=== PATIENT | male | born 1995 | race African-American/Black ===

== ENCOUNTER 2020-05-25 16:02 | Inpatient (IN) ==
[2020-05-25] MEDS ORDERED: Famotidine IV 10 MG/ML 2 ml VIAL (20 mg) IV ONE (17:44)
[2020-05-25] MEDS ORDERED: Famotidine IV 10 MG/ML 2 ml VIAL (20 mg) ONE (18:00)
[2020-05-25] MEDS: Lactated Ringers 1000 ml BAG 1,000 ML IV SCH ×2 (18:13→22:49)
[2020-05-25 18:15] LABS: Activated Partial Thrombo Time 43.7 seconds (26.0-38.0); INR 2.36 (0.82-1.09)
[2020-05-25 18:17] LABS: ABS Basophils 0.1 10^3/ul (0-0.2); ABS Lymphocytes 0.8 10^3/ul (1.0-4.8); ABS Monocytes 0.6 10^3/ul (0-0.8); Eosinophil % 0.7 %; Hematocrit 44 % (42-52); Hemoglobin 15.1 g/dL (14.0-18.0); Lymphocyte % 18.2 %; Mean Corpuscular HGB Conc 34 g/dL (31-36); Mean Corpuscular Hemoglobin 30 pg (27-31); Mean Corpuscular Volume 87 fL (80-94); Mean Platelet Volume 8.2 fL (7.4-10.4); Platelet Count 348 10^3/uL (150-450); Red Blood Count 5.04 10^6 /uL (4.18-5.48); Red Cell Distribution Width 14 % (10-15); White Blood Count 4.5 10^3/uL (3.5-10.8)
[2020-05-25] MEDS ORDERED: Lidocaine 1% w EPI 1:100,000 MDV 20 ML VIAL ONE (18:24)
[2020-05-25] MEDS ORDERED: Bupivacaine 0.25% EPI 200,000 30 ML SDV ONE (18:25)
[2020-05-25 18:27] LABS: Albumin 3.3 g/dL (3.2-5.2); Calcium 9.3 mg/dL (8.6-10.3); Potassium 4.3 mmol/L (3.5-5.0); Total Bilirubin 0.6 mg/dL (0.2-1.0)
[2020-05-25 18:34] LABS: Albumin/Globulin Ratio 0.7 (1-3); BUN/Creatinine Ratio 13.3 (8-20); C Reactive Protein 158.59 mg/L (<8.01); EGFR African American 151.2 (>60); EGFR Non-African American 124.9 (>60); Total Protein 8.3 g/dL (6.4-8.9)
[2020-05-25] MEDS ORDERED: Midazolam 5 mg/5 ml VIAL 1 mg/ml 5 ml VIAL (5 mg) ONE (18:46)
[2020-05-25] MEDS ORDERED: fentaNYL 100 mcg/2 ml 50 MCG/ML VIAL ONE ×2 (18:59→19:21)
[2020-05-25] MEDS ORDERED: Ondansetron 4 mg VIAL 2 MG/ML 2 ml VIAL ONE (19:20)
[2020-05-25] MEDS ORDERED: Dexamethasone IV 4 MG/ML VIAL 1 ml VIAL ONE (19:20)
[2020-05-25] MEDS ORDERED: Propofol 10 MG/ML 20 ML BTL ONE ×2 (19:20→20:47)
[2020-05-25] MEDS ORDERED: Lidocaine 2% PF 5 ML VIAL ONE (19:20)
[2020-05-25] MEDS ORDERED: GENTAMICIN ADULT IVPB ONE (20:00)
[2020-05-25] MEDS ORDERED: NS 0.9% IVPB ONE (20:00)
[2020-05-25] MEDS ORDERED: oxyCODONE/Acetamin 5/325 mg TAB PO PRN (20:54)
[2020-05-25] MEDS ORDERED: Naloxone 0.4 mg VIAL 0.4 mg/ml 1 ml VIAL IV PRN (20:54)
[2020-05-25] MEDS ORDERED: DiMENhydriNATE IV 50 mg/ml 1 ml VIAL IV PUSH PRN (20:54)
[2020-05-25] MEDS ORDERED: diPHENhydraMINE IV 50 MG/ML 1 ml VIAL (BENADRYL) IV PRN (20:55)
[2020-05-25] MEDS ORDERED: Lactulose 30 ml UDC PO PRN (20:55)
[2020-05-25] MEDS ORDERED: Ondansetron 4 mg VIAL 2 MG/ML 2 ml VIAL IV PRN (20:55)
[2020-05-25] MEDS ORDERED: Ondansetron ODT 4 mg TAB 4 MG TAB PO PRN (20:55)
[2020-05-25] MEDS ORDERED: Magnesium Hydroxide LIQ 30 ML UDC PO PRN (20:55)
[2020-05-25] MEDS ORDERED: diPHENhydraMINE 25 mg TAB PO PRN (20:55)
[2020-05-25] MEDS ORDERED: HYDROmorphone 1 MG/1 ML SYRINGE ONE (21:29)
[2020-05-25] MEDS ORDERED: oxyCODONE/Acetamin 5/325 mg TAB ONE (21:29)
[2020-05-25] MEDS: HYDROmorphone 1 MG/1 ML SYRINGE IV PRN ×2 (21:30→21:42)
[2020-05-25] MEDS: Magnesium Hydroxide LIQ 30 ML UDC PO SCH (22:50)
[2020-05-26] MEDS: Gentamicin ADULT 100 MG in NS 0.9% 100 ml BAG 100 ML IVPB SCH ×2 (05:06→08:23)
[2020-05-26] MEDS: oxyCODONE/Acetamin 5/325 mg TAB PO PRN ×4 (06:05→21:15)
[2020-05-26] MEDS: Cefepime 2 GM in Dextrose 2 GM/50 ML BAG IV SCH ×2 (06:06→17:33)
[2020-05-26 06:11] LABS: Hematocrit 34 % (42-52); Hemoglobin 11.8 g/dL (14.0-18.0); Platelet Count 404 10^3/uL (150-450)
[2020-05-26 06:27] LABS: BUN/Creatinine Ratio 16.2 (8-20); Calcium 9.3 mg/dL (8.6-10.3); EGFR African American 153.5 (>60); EGFR Non-African American 126.9 (>60)
[2020-05-26 06:29] LABS: Potassium 5.2 mmol/L (3.5-5.0)
[2020-05-26] MEDS ORDERED: Vancomycin 1000 MG in NS 0.9% 250 ML IVPB SCH (06:30)
[2020-05-26] MEDS: Ciprofloxacin 400mg IVPREMIX 400 MG/200 ML BAG IVPB SCH ×2 (06:41→18:17)
[2020-05-26] MEDS ORDERED: Vancomycin per Pharmacy 1 EA NOTE FOLLOW UP PRN (07:13)
[2020-05-26] MEDS ORDERED: Vitamin THERAPEUTIC TAB PO SCH (09:00)
[2020-05-26] MEDS ORDERED: Influenza VAC *QUAD* 2020-21* 0.5 ML SYRINGE IM ONE (09:00)
[2020-05-26 09:13] LABS: Erythrocyte Sed Rate 88 mm/Hr (0-14)
[2020-05-26] MEDS: Magnesium Hydroxide LIQ 30 ML UDC PO SCH ×2 (10:30→21:16)
[2020-05-26 14:39] LABS: ABS Lymphocytes 1.1 10^3/ul (1.0-4.8); ABS Monocytes 0.7 10^3/ul (0-0.8); ABS Neutrophils 6.7 10^3/ul (1.5-7.7); Hematocrit 31 % (42-52); Hemoglobin 10.9 g/dL (14.0-18.0); Lymphocyte % 12.6 %; Mean Corpuscular HGB Conc 35 g/dL (31-36); Mean Corpuscular Hemoglobin 30 pg (27-31); Mean Corpuscular Volume 86 fL (80-94); Platelet Count 421 10^3/uL (150-450); Red Blood Count 3.66 10^6 /uL (4.18-5.48); Red Cell Distribution Width 14 % (10-15); White Blood Count 8.5 10^3/uL (3.5-10.8)
[2020-05-27] MEDS: oxyCODONE/Acetamin 5/325 mg TAB PO PRN ×3 (05:13→20:52)
[2020-05-27] MEDS: Ciprofloxacin 400mg IVPREMIX 400 MG/200 ML BAG IVPB SCH ×2 (05:17→17:10)
[2020-05-27] MEDS ORDERED: Vancomycin Trough Check NOTE FOLLOW UP ONE (06:00)
[2020-05-27] MEDS: Cefepime 2 GM in Dextrose 2 GM/50 ML BAG IV SCH ×2 (06:28→18:28)
[2020-05-27] MEDS: Magnesium Hydroxide LIQ 30 ML UDC PO SCH ×2 (07:56→20:53)
[2020-05-27 08:08] LABS: Hematocrit 32 % (42-52); Hemoglobin 10.6 g/dL (14.0-18.0); Mean Platelet Volume 8.3 fL (7.4-10.4); Platelet Count 358 10^3/uL (150-450)
[2020-05-27 08:22] LABS: BUN/Creatinine Ratio 9.9 (8-20); Calcium 8.9 mg/dL (8.6-10.3); EGFR African American 138.3 (>60); EGFR Non-African American 114.3 (>60); Potassium 3.9 mmol/L (3.5-5.0)
[2020-05-28 05:04] LABS: ABS Eosinophils 0.1 10^3/ul (0-0.6); ABS Lymphocytes 1.4 10^3/ul (1.0-4.8); ABS Monocytes 0.5 10^3/ul (0-0.8); ABS Neutrophils 2.6 10^3/ul (1.5-7.7); Hematocrit 34 % (42-52); Hemoglobin 11.5 g/dL (14.0-18.0); Lymphocyte % 31.3 %; Mean Corpuscular HGB Conc 33 g/dL (31-36); Mean Corpuscular Hemoglobin 29 pg (27-31); Mean Corpuscular Volume 88 fL (80-94); Mean Platelet Volume 7.9 fL (7.4-10.4); Platelet Count 400 10^3/uL (150-450); Red Blood Count 3.92 10^6 /uL (4.18-5.48); Red Cell Distribution Width 14 % (10-15); White Blood Count 4.6 10^3/uL (3.5-10.8)
[2020-05-28] MEDS: Ciprofloxacin 400mg IVPREMIX 400 MG/200 ML BAG IVPB SCH (05:20)
[2020-05-28] MEDS: Cefepime 2 GM in Dextrose 2 GM/50 ML BAG IV SCH ×2 (06:29→18:09)
[2020-05-28] MEDS: Magnesium Hydroxide LIQ 30 ML UDC PO SCH ×2 (07:51→20:02)
[2020-05-28] MEDS: Senna TAB 8.6 mg TAB PO SCH (07:51)
[2020-05-28] MEDS: oxyCODONE/Acetamin 5/325 mg TAB PO PRN ×4 (08:04→23:48)
[2020-05-28] MEDS ORDERED: Gadoteridol (CONTRAST) 279.3 MG/ML 10 ML IV ONE ×2 (12:16→12:58)
[2020-05-28] MEDS ORDERED: Buffered Lidocaine 1% SYRIN 1 ml INTRADERM ONE (15:06)
[2020-05-28] MEDS ORDERED: Morphine 2 MG/ML SYRINGE IV PRN (20:33)
[2020-05-29 05:40] LABS: Hematocrit 34 % (42-52); Hemoglobin 11.7 g/dL (14.0-18.0); Mean Platelet Volume 7.9 fL (7.4-10.4); Platelet Count 428 10^3/uL (150-450)
[2020-05-29] MEDS: oxyCODONE/Acetamin 5/325 mg TAB PO PRN ×2 (06:04→12:06)
[2020-05-29] MEDS: Cefepime 2 GM in Dextrose 2 GM/50 ML BAG IV SCH ×2 (06:04→18:42)
[2020-05-29] MEDS: Senna TAB 8.6 mg TAB PO SCH (10:52)
[2020-05-29] MEDS: Magnesium Hydroxide LIQ 30 ML UDC PO SCH ×2 (10:52→21:56)
[2020-05-29 11:50] LABS: HIV 4th Generation Nonreactive (Nonreactive)
[2020-05-29] MEDS ORDERED: Buffered Lidocaine 1% SYRIN 1 ml INTRADERM ONE (15:14)
[2020-05-29] MEDS ORDERED: Ondansetron 4 mg VIAL 2 MG/ML 2 ml VIAL IV PRN (17:44)
[2020-05-29] MEDS ORDERED: fentaNYL 100 mcg/2 ml 50 MCG/ML VIAL IV PRN (17:44)
[2020-05-29] MEDS ORDERED: HYDROmorphone 1 MG/1 ML SYRINGE IV PRN (17:44)
[2020-05-29] MEDS ORDERED: Naloxone 0.4 mg VIAL 0.4 mg/ml 1 ml VIAL IV PRN (17:44)
[2020-05-29] MEDS ORDERED: fentaNYL 250 mcg/5 ml 50 MCG/ML 5 ml VIAL (250 MCG) ONE (18:08)
[2020-05-29] MEDS ORDERED: Midazolam 2 mg/2 ml VIAL 1 mg/ml 2 ml VIAL (2 mg) ONE (18:08)
[2020-05-29] MEDS ORDERED: Lidocaine 1% w EPI 1:100,000 MDV 20 ML VIAL ONE (18:13)
[2020-05-29] MEDS ORDERED: Lidocaine 2% PF 5 ML VIAL ONE (18:17)
[2020-05-29] MEDS ORDERED: Propofol 10 MG/ML 20 ML BTL ONE (18:17)
[2020-05-29] MEDS ORDERED: Ondansetron 4 mg VIAL 2 MG/ML 2 ml VIAL ONE (18:17)
[2020-05-29] MEDS ORDERED: Dexamethasone IV 4 MG/ML VIAL 1 ml VIAL ONE (18:17)
[2020-05-29] MEDS ORDERED: fentaNYL 100 mcg/2 ml 50 MCG/ML VIAL ONE (19:55)
[2020-05-29] MEDS: Lactated Ringers 1000 ml BAG 1,000 ML IV SCH (22:34)
[2020-05-30] MEDS: oxyCODONE/Acetamin 5/325 mg TAB PO PRN ×4 (04:44→22:00)
[2020-05-30] MEDS: Cefepime 2 GM in Dextrose 2 GM/50 ML BAG IV SCH ×2 (05:36→17:31)
[2020-05-30 05:52] LABS: Hematocrit 31 % (42-52); Hemoglobin 10.7 g/dL (14.0-18.0); Mean Corpuscular HGB Conc 35 g/dL (31-36); Mean Corpuscular Hemoglobin 30 pg (27-31); Mean Corpuscular Volume 85 fL (80-94); Mean Platelet Volume 7.7 fL (7.4-10.4); Platelet Count 377 10^3/uL (150-450); Red Blood Count 3.59 10^6 /uL (4.18-5.48); Red Cell Distribution Width 14 % (10-15); White Blood Count 5.8 10^3/uL (3.5-10.8)
[2020-05-30] MEDS: Senna TAB 8.6 mg TAB PO SCH (08:30)
[2020-05-30] MEDS: Magnesium Hydroxide LIQ 30 ML UDC PO SCH ×2 (08:31→21:15)
[2020-05-30] MEDS ORDERED: oxyCODONE/Acetamin 5/325 mg TAB PO ONE (12:03)
[2020-05-30] MEDS: Lactated Ringers 1000 ml BAG 1,000 ML IV SCH (17:38)
[2020-05-31] MEDS: Cefepime 2 GM in Dextrose 2 GM/50 ML BAG IV SCH ×2 (05:42→18:24)
[2020-05-31] MEDS: Magnesium Hydroxide LIQ 30 ML UDC PO SCH ×2 (09:03→19:39)
[2020-05-31] MEDS: Senna TAB 8.6 mg TAB PO SCH (09:03)
[2020-06-01] MEDS: Cefepime 2 GM in Dextrose 2 GM/50 ML BAG IV SCH (05:26)
[2020-06-01] MEDS: Magnesium Hydroxide LIQ 30 ML UDC PO SCH (08:27)
[2020-06-01] MEDS: Senna TAB 8.6 mg TAB PO SCH (08:27)
[2020-06-01 11:25] VITALS: BP 119/62
== END 2020-06-01 16:00 | disposition home or self-care (01) | DRG 313 ==
LOC: ED 16:02 → SSU 17:44
PROVIDERS: ADMIT Orthopaedic Surgery Sports Medicine; ATTEND Orthopaedic Surgery Sports Medicine